=== PATIENT | male | born 1975 | race Caucasian/White ===

== ENCOUNTER 2024-10-13 11:23 | Outpatient (REF) | payer BC, SELFPAY ==
[2024-10-13 18:26] LABS: Calculated LDL 84 mg/dL (<100); Cholesterol 174 mg/dL (<200); HDL Cholesterol 74 mg/dL (>or=40); Triglyceride 80 mg/dL (<150)
[2024-10-14 07:51] LABS: Glucose 99 mg/dL (74-106)
== END 2024-10-13 11:24 | disposition home or self-care (01) ==
LOC: NCHCN 11:23
PROVIDERS: PCP Family Medicine; Visit Provider Family Medicine
DX: Z00.00 Encounter for general adult medical examination without abnormal findings (principal)
CPT/HCPCS: 80061; 82947; 82950

== ENCOUNTER 2025-03-18 06:54 | Day surgery (SDC) | payer BC, SELFPAY ==
--- NOTE | 2025-03-17 20:02 | PDOC.DSDIS_ITS ---
Date of service: 03/18/25 Discharge Plan Disposition Patient Disposition: Home Condition: Good Discharge Details Reason For Visit: screening colonscopy Attending Provider: Jed Yuen Primary Care Provider: Apollo Cook Home Meds and New Rx's Prescriptions: Continued cyanocobalamin (vitamin B-12) 1,000 mcg capsule 1,000 mcg PO DAILY multivitamin Tablet 1 tab PO DAILY Discontinued bisacodyl [Dulcolax (bisacodyl)] 5 mg tablet,delayed release (DR/EC) 5 mg PO ONCE Qty: 4 0RF Rx Instructions: Take per colonoscopy instructions provided by ordering providers office polyethylene glycol 3350 17 gram/dose powder 17 g PO ONCE Qty: 238 0RF Rx Instructions: Take per colonoscopy instructions provided by ordering providers office Discharge Instructions Instructions: Colon polyps Additional Instructions: Alex, it was nice to meet you today, and I hope you feel well after the procedure. Things went very smoothly. Your prep was excellent, and I could see everything fine. I did find, and removed, 1 very small polyp from your rectum today. As I mentioned before the procedure, send this to the pathologist for them to review. The results will take about a week or 2 to get back, but once my office has that information, we will be in touch with recommendations for your next colonoscopy. If you need anything or have any questions at all, cora lovell do not hesitate to ask. 1. If tolerated, consume a soft, low fiber diet for 1-2 days. 2[address] Do not drive, drink alcohol, operate machinery, make critical decisions, or do activities that require coordination or balance for 24 hours. 3. Because air was put into your colon during the procedure, expelling air from your rectum (passing gas or farting) is normal. 4. You may not have a bowel movement for 1-3 days because of the colonoscopy prep. This is normal. 5. Go directly to the emergency room if you notice any of the following: Develop chills (warm to touch), or if you have a thermometer and your temperature is above 101 Difficulty breathing or difficultly swallowing Persistent vomiting Severe abdominal pain, other than gas cramps Severe chest pain Black, tarry stools Any bleeding ? exceeding one tablespoon 6. Call your physician if the site where your intravenous was started becomes red, swollen, painful, and warm to touch. 7. Your physician has reviewed your pre-procedure medications. Please continue to take those medications as previously ordered. You will be given specific information/education regarding any changes to your medications before leaving. Stand Alone Forms: Anesthesia Discharge Inst., Ronda Aranda (DSU) Activity:: Activity as Tolerated Diet:: As Tolerated Discharge Orders Discharge Orders: Discharge Order (Routine); Ordered 03/17/25 Ordered By: Jed Yuen DS: Diagnosis Discharge Diagnosis (1) Encounter for screening colonoscopy: Status: Acute Asessment and Plan: Follow-up on polypectomy results
--- NOTE | 2025-03-17 20:05 | COLE_ITS ---
Date of service: 03/18/25 Time of Service: 09:14 Colonoscopy Report Date of procedure: 03/18/25 Pre-op diagnosis general: screening colonoscopy Post-op diagnosis procedure note: other (Rectal polyp) Procedure: colonoscopy with polypectomy Surgeon: Jed Yuen Anesthesia Type: General:No Airway Estimated blood loss (mL): 5 Pathology: other (0.25 cm flat rectal polyp) Complications: None Disposition: same day Indications: Alex is a 49 year old man who needs a screening colonoscopy Prep: Miralax/Dulcolax Procedure Start Time: 08:52 Procedure End Time: 09:07 Retraction Time: 7 Findings: 0.25 cm flat rectal polyp Procedure Description: After the induction of anesthesia, and with Alex in left lateral decubitus position, I began by performing an external anorectal exam.? Perineum and skin were normal, as was the anal verge.? There was no evidence of external hemorrhoids.? Next, I performed a digital rectal exam.? I did not appreciate any abnormal findings.? Next, I advanced a colonoscope into the rectal vault.? I performed retroflexion.? This appeared normal.? Using insufflation, I then advanced the colonoscope beyond the rectal folds and into the sigmoid colon before advancing towards the cecum.? The quality of the prep was excellent.? The scope was noted to be in the cecum by identification of the ileocecal valve and appendiceal orifice.? I then began withdrawing the colonoscope using repeated irrigation as necessary for full evaluation of the colonic mucosa. ?Once the scope was withdrawn to the level of the rectum, great care was taken to examine portions of the rectal folds. In the midportion of the rectal vault was a 0.25 cm flat polyp. This was removed with cold forcep polypectomy. There was minimal bleeding from the site. Finally, the scope was withdrawn and the patient was brought to the same-day surgery recovery unit as the anesthetic wore off. ?The findings and instructions were shared with the patient prior to discharge. [place] Bowel Prep [place] Bowel Prep Right Colon: 3 Left Colon: 3 Transverse Colon: 3 Total Score: 9
[2025-03-18 07:03] VITALS: BP 123/85; PULSE 75; RESP 18; TEMP 36.7; O2SAT 99
[2025-03-18] MEDS: Lactated Ringers 1,000 ML 80 ML IV (07:26)
--- NOTE | 2025-03-18 07:47 | W.ANESPRE ---
General Info Date of Service Date Performed: 03/18/25 Height: 5 ft 7 in Weight: 66 kg Body Mass Index (BMI): 22.8 Surgical Procedure: Operation Date: 03/18/25 08:20 Proposed Procedure Side Surgeon cora Yuen MD Meds Allergies and Home Medications Allergies Allergy/AdvReac Type Severity Reaction Status Date / Time amoxicillin Allergy Intermediate Unknown Verified 03/18/25 07:14 Home Medication ?Medication ?Instructions ?Recorded cyanocobalamin (vitamin B-12) 1,000 mcg PO DAILY 03/04/24 1,000 mcg capsule multivitamin 1 tab PO DAILY 04/14/24 Current Visit Medications: Current Medications Generic Name Dose Route Start Last Admin Trade Name Freq PRN Reason Stop Dose Admin Ringer's Solution 1,000 mls @ 80 mls/hr 03/18/25 06:00 03/18/25 07:26 IV 03/18/25 23:59 80 mls/hr INFUSION PADDY Administration IV Miscellaneous Supplies 1 each 03/18/25 06:00 Iv Access IV 03/18/25 23:59 DIRECTED PADDY Sodium Chloride 0 ml 03/18/25 06:00 Normal Saline Flush 10 Ml Syr IV 03/18/25 23:59 PRN PRN Sodium Chloride 0 ml 03/18/25 06:00 Normal Saline 10 Ml Vial IJ 03/18/25 23:59 DIRECTED PRN Sterile Water 0 ml 03/18/25 06:00 Water,Injection,Sterile 10 Ml Vial IJ 03/18/25 23:59 DIRECTED PRN PFSH Active Problems Active Problems: Problem Status Onset Code Encounter for screening colonoscopy Acute Z12.11 Pain in left foot Acute M79.672 Corns and callosities Acute L84 Plantar verruca Acute B07.0 Nicotine dependence Acute F17.200 Medical History Medical History History of cervical fracture Surgical History Surgical History Hx of wisdom tooth extraction Tobacco Smoking/Tobacco Use Status: Former Tobacco Use (quit one year ago) Passive smoking exposure: Yes Alcohol Alcohol Intake: current Alcohol intake frequency: a few times a week Alcohol type: beer Substance Use Substance use: Occasionally Substance use type: marijuana Details: Gummies Vital Signs and Lab Results Vital Signs Most Recent Vital Signs in EMR: Most Recent Vital Signs Temp Pulse Resp BP Pulse Ox 36.7 C 75 18 123/85 99 03/18/25 07:03 03/18/25 07:03 03/18/25 07:03 03/18/25 07:03 03/18/25 07:03 Anesthesia Assessment and Plan Anesthesia History Personal History: No History of Anesthesia Complications Family History: No Family History of Anesthesia Complications Exercise Tolerance Exercise Tolerance: Metabolic Equivalents>4 Pertinent Negatives Pertinent Negatives: No Symptoms of GERD, No Major Cardiovascular Symptoms or Complaints, No Major Pulmonary Symptoms or Complaints and No History of CVA/TIA Cardiac & Pulmonary Exam Cardiac Exam: Normal S1/S2 Heart Sounds Pulmonary Exam: Clear Bilateral Breath Sounds Implantable Cardiac Device Does patient have a Pacemaker or an ICD?: No Airway Exam Known Difficult Airway: No Mallampati Class: 2 Mouth Opening: Normal (> 3cm) Thyromental Distance: Greater than 3 cm Neck Range of Motion: Full ROM Neck Circumference: Normal Teeth Condition: Normal Dentition ASA Classification ASA Score: ASA 2 Emergency Case?: No NPO Status NPO Status: NPO Clears >2 hours, Solids >8 hours Anesthesia Plan Resuscitation Status: Full Code Anesthesia Technique: General Anesthesia Airway Planned: Natural Airway Monitors Used: Standard Monitors
[2025-03-18 07:52] VITALS: BMI 22.8
--- NOTE | 2025-03-18 09:06 | BOWEL_PTH ---
PATIENT: Alex Leach LOC: [facility] U#:[id number] AGE/SX: 49/M ROOM: RE03/18/[address]: Jed Yuen MD : 1975 BED: DIS: 03/18/2025 SPEC #: [id number] RECD: 03/18/25 11:01 STATUS: JARED RE #: [id number] MALIHA: 03/18/25 09:[address]: Jed Yuen DEPT: Surgical Specimen RECD BY: Miladis Horan ENTERED: 03/18/25 11:02 SP TYPE: Bowel OTHR DR: Apollo Cook Tissues: 1 - BIOPSY BOWEL Procedures: GROSS AND MICRO LEVEL 4 Comments: [id number]
[2025-03-18 09:12] VITALS: BP 109/74; PULSE 70; RESP 16; TEMP 36.5; O2SAT 97
[2025-03-18 09:38] VITALS: BP 119/82; PULSE 60; RESP 16; TEMP 36.4; O2SAT 99
--- NOTE | 2025-03-18 09:39 | W.ANESPOSTOP ---
Postoperative Evaluation Date, Time and Location Date Performed: 03/18/25 Time Performed: 09:39 Patient Location: Day Surgery Unit Vital Signs Most Recent Imported Vital Signs: Most Recent Vital Signs Temp Pulse Resp BP Pulse Ox 36.5 C 70 16 109/74 97 03/18/25 09:12 03/18/25 09:12 03/18/25 09:12 03/18/25 09:12 03/18/25 09:12 Pain Score Most Recent Pain Score: Most Recent Pain Score Pain Level 0 03/18/25 09:12 Assessment Mental Status: Awake (Alert & Oriented to Patient Baseline) Airway and Respiratory Function: Patent airway with normal (patient baseline) respiratory exam Cardiovascular Function: Hemodynamically Stable Hydration Status: Adequately Hydrated Nausea & Vomiting: No Nausea or Vomiting Pain: Pt. Denies Any Pain Peripheral Nerve Block: Patient did not receive a nerve block
== END 2025-03-18 09:53 | disposition home or self-care (01) ==
LOC: SUR 06:54
PROVIDERS: PCP Family Medicine; Visit Provider Surgery
PROC: 0DJD8ZZ Inspection of Lower Intestinal Tract, Via Natural or Artificial Opening Endoscopic (ICD-10-PCS; CPT 45378; principal; 2025-03-18 08:15)
DX: Z12.11 Encounter for screening for malignant neoplasm of colon (principal); K62.1 Rectal polyp
CPT/HCPCS: 45380; 88305; J2704